=== PATIENT | female | born 1985 ===

== ENCOUNTER 2016-07-06 15:49 | Emergency (ER) | payer SELFPAY | END 2016-07-06 17:02 | disposition home or self-care (01) | LOC: ED 15:49 | DX: S46.912A Strain of unspecified muscle, fascia and tendon at shoulder and upper arm level, left arm, initial encounter (principal); X58.XXXA Exposure to other specified factors, initial encounter; Y93.F2 Activity, caregiving, lifting; Y99.0 Civilian activity done for income or pay ==